=== PATIENT | female | born 1945 | race Caucasian/White ===

== ENCOUNTER 2021-01-27 10:22 | Emergency (ER) | payer OTHER ==
[~2021-01-27] VITALS: Ht 157.5 cm; Wt 86.2 kg
[2021-01-27] MEDS ORDERED: CELEBREX100 MG PO (15:59)
[2021-01-27] MEDS ORDERED: INTESTINEX680 M1 PO (15:59)
[2021-01-27] MEDS ORDERED: SALINE NASAL SP88 ML NASAL (15:59)
[2021-01-27] MEDS ORDERED: FLONASE ALLERG9.9 ML NASAL (15:59)
[2021-01-27] MEDS ORDERED: AMOX-CLAV 875-1 EAC1 PO (15:59)
== END 2021-01-27 16:11 | disposition home or self-care (01) ==
LOC: ER 10:22
DX: S02.2XXA Fracture of nasal bones, initial encounter for closed fracture (principal); S13.8XXA Sprain of joints and ligaments of other parts of neck, initial encounter; R04.0 Epistaxis; W01.198A Fall on same level from slipping, tripping and stumbling with subsequent striking against other object, initial encounter; Y93.01 Activity, walking, marching and hiking; Y92.63 Factory as the place of occurrence of the external cause; Y99.8 Other external cause status

== ENCOUNTER 2023-01-18 09:45 | Inpatient (IN) | payer OTHER ==
[~2023-01-18] VITALS: Ht 157.5 cm; Wt 81.6 kg
[~2023-01-18 09:45] MED LIST: AMOX-CLAV 875-1 EAC1 PO; CELEBREX100 MG PO; FLONASE ALLERG9.9 ML NASAL; INTESTINEX680 M1 PO; SALINE NASAL SP88 ML NASAL
[2023-01-18] MEDS ORDERED: SYMBICORT 16010.2 GM IH (12:08)
[2023-01-18] MEDS ORDERED: ZIPSOR25 MG PO (12:09)
[2023-01-23] MEDS ORDERED: MONTELUKAST SOD10 MG (08:06)
[2023-01-23] MEDS ORDERED: AMLODIPINE BESYL5 MG (08:06)
[2023-01-23] MEDS ORDERED: ROSUVASTATIN CAL5 MG (08:06)
[2023-01-23] MEDS ORDERED: LOSARTAN POTASS50 MG (08:06)
[2023-01-23] MEDS ORDERED: DICLOFENAC SOD100 MG (08:06)
[2023-01-26] MEDS ORDERED: CEFADROXIL500 MG PO (07:48)
[2023-01-26] MEDS ORDERED: ELIQUIS2.5 MG PO (07:48)
[2023-01-26] MEDS ORDERED: PERCOCET 5-3251 EACH PO (07:48)
== END 2023-01-26 13:32 | DRG 470 ==
LOC: O/R 01-23 05:16 → SURG 01-23 05:16
PROVIDERS: ADMIT Orthopaedic Surgery; ATTEND Orthopaedic Surgery
PROC: 0MNN0ZZ Release Right Knee Bursa and Ligament, Open Approach (ICD-10-PCS; 2023-01-23)
PROC: 0SRC0J9 Replacement of Right Knee Joint with Synthetic Substitute, Cemented, Open Approach (ICD-10-PCS; principal; 2023-01-23 13:45)
DX: M17.11 Unilateral primary osteoarthritis, right knee (principal); M22.11 Recurrent subluxation of patella, right knee